=== PATIENT | female | born 1940 | race Caucasian/White ===

== ENCOUNTER 2017-04-12 12:09 | Outpatient (CLI) | payer MEDICARE, BC ==
[~2017-04-12 12:09] MED LIST: ASPI81TA52 PO; ATOR20TA PO; BUPR150T8 PO; CALC-1051 PO; CARV25TA56 PO; COL100C PO; CYCL-394 PO; FAMO-129 PO; FERR325T28 PO; FURO-150 PO; HYDR-565 PO; IMMU2VIA; INSU100I25 SQ; ISOS30TA9 PO; LISI40TA4 PO; METHYLCELLULOSE PO; POLY17PO10 PO; PREG75CA30 PO; PREN1TAB79 PO; SITA50TA PO; VIT D3 PO; VITA-67 PO; VITA400T10 PO; VITC500T PO
[2017-04-12 13:07] LABS: ALBUMIN 2.8 G/DL (3.4-5.0); ANION GAP 3 (8-16); BLOOD UREA NITROGEN 45 MG/DL (7-18); BUN/CREATININE RATIO 22.2 (6.6-38.0); CALCIUM 9.2 MG/DL (8.5-10.1); CHLORIDE 107 MMOL/L (99-107); CREATININE 2.03 MG/DL (0.40-0.90); GLUCOSE 179 MG/DL (70-104); SODIUM 140 MMOL/L (135-145); TOTAL CARBON DIOXIDE 29.8 MMOL/L (24-32); eGFR 24 ML/MIN
== END 2017-04-12 23:59 | disposition home or self-care (01) ==
LOC: LAB 12:09
PROVIDERS: ATTEND Internal Medicine Cardiovascular Disease
DX: R06.02 Shortness of breath (principal); I10 Essential (primary) hypertension; E11.9 Type 2 diabetes mellitus without complications
CPT/HCPCS: 36415; 80048; 83880

== ENCOUNTER 2017-05-21 21:01 | Inpatient (IN) | payer MEDICARE, BC ==
[~2017-05-21] VITALS: Ht 157.5 cm; Wt 110.0 kg
[2017-05-21 21:36] LABS: BASOPHILS % (AUTO) 0.6 % (0-1); EOSINOPHILS # (AUTO) 0.3 X10'3 (0-0.9); EOSINOPHILS % (AUTO) 3.8 % (0-6); HEMATOCRIT 31.8 % (35.0-45.0); HEMOGLOBIN 10.4 g/dl (12.0-16.0); LYMPHOCYTES # (AUTO) 1.7 X10'3 (1.1-4.8); LYMPHOCYTES % (AUTO) 22.7 % (21-51); MEAN CORPUSCULAR HEMOGLOBIN 30.4 PG (27.0-31.0); MEAN CORPUSCULAR HGB CONC 32.9 % (33.0-36.5); MEAN CORPUSCULAR VOLUME 92.4 FL (78-98); MEAN PLATELET VOLUME 10.6 FL (7.4-10.4); MONOCYTES # (AUTO) 0.9 X10'3 (0-0.9); MONOCYTES % (AUTO) 12.6 % (2-12); NEUTROPHILS # (AUTO) 4.5 X10'3 (1.8-7.7); NEUTROPHILS % (AUTO) 60.3 % (42-75); PLATELET COUNT 108 X10'3 (140-440); RED BLOOD COUNT 3.44 X10'6 (4.20-5.60); RED CELL DISTRIBUTION WIDTH 21.4 % (11.5-14.5); WHITE BLOOD COUNT 7.5 X10'3 (4.5-11.0)
[2017-05-21] MEDS ORDERED: furosemide 10 MG/1 ML 10ml inj IV ONE (21:45)
[2017-05-21] MEDS ORDERED: enalaprilat dihydrate 2.5mg/2ml vial IV ONE (21:50)
[2017-05-21] MEDS ORDERED: nitroGLYCERIN-Tridil 50MG/D5W 250 ML IV ONE (21:50)
[2017-05-21 21:53] LABS: D-DIMER 2.38 MG/L FEU (0-0.50); INR 1.4 INR; PARTIAL THROMBOPLASTIN TIME 28 SECONDS (22-32); PROTHROMBIN TIME 14.2 SECONDS (9.0-12.0)
[2017-05-21 21:55] LABS: LARGE PLATELETS MODERATE; PLATELET ESTIMATE DECREASED
[2017-05-21 22:04] LABS: ALANINE AMINOTRANSFERASE 58 U/L (12-78); ALBUMIN 3.2 G/DL (3.4-5.0); ALKALINE PHOSPHATASE 135 IU/L (46-116); ANION GAP 5 (8-16); ASPARTATE AMINO TRANSFERASE 62 U/L (10-37); BLOOD UREA NITROGEN 54 MG/DL (7-18); BUN/CREATININE RATIO 33.8 (6.6-38.0); CALCIUM 8.3 MG/DL (8.5-10.1); CHLORIDE 98 MMOL/L (99-107); GLUCOSE 197 MG/DL (70-104); POTASSIUM 4.8 MMOL/L (3.5-5.1); SODIUM 133 MMOL/L (135-145); TOTAL CARBON DIOXIDE 29.6 MMOL/L (24-32); TOTAL PROTEIN 6.3 G/DL (6.4-8.2); eGFR 31 ML/MIN
[2017-05-21] MEDS ORDERED: heparin 10,000 units/1 ML INJ IV ONE ×2 (22:50→23:20)
[2017-05-22] VITALS (12 sets, daily range): BP systolic 101–156; BP diastolic 56–90
[2017-05-22] MEDS: normal saline 1000ml 1,000 ML IV SCH (01:49)
[2017-05-22] MEDS ORDERED: furosemide 10 MG/1 ML 10ml inj IV ONE (01:50)
[2017-05-22] MEDS ORDERED: potassium Cl 20 mEq SR tablet PO PRN ×2 (01:50)
[2017-05-22] MEDS ORDERED: potassium Cl 40MEQ/NS 500ml 500 ML IV PRN ×2 (01:50)
[2017-05-22] MEDS ORDERED: magnesium Cl slow-release 64mg tablet PO PRN (01:50)
[2017-05-22] MEDS ORDERED: magnesium 4gm in 100ml NS 100 ML IV PRN (01:50)
[2017-05-22] MEDS ORDERED: magnesium hydroxide 30ml (MOM) UD suspension PO PRN (01:50)
[2017-05-22] MEDS ORDERED: magnesium 2GM in 50ml NS 50 ML IV PRN (01:50)
[2017-05-22] MEDS ORDERED: albuterol 2.5 MG/3 ML nebule NEB PRN (01:50)
[2017-05-22] MEDS: morphine 2 MG/ML inj. syringe IV PRN ×3 (03:43→13:08)
[2017-05-22] MEDS ORDERED: Insulin Detemir pen SQ SCH ×2 (07:30→21:00)
[2017-05-22 07:57] LABS: BASOPHILS # (AUTO) 0.1 X10'3 (0-0.2); EOSINOPHILS # (AUTO) 0.2 X10'3 (0-0.9); EOSINOPHILS % (AUTO) 2.4 % (0-6); HEMATOCRIT 28.1 % (35.0-45.0); HEMOGLOBIN 9.3 g/dl (12.0-16.0); LYMPHOCYTES # (AUTO) 2.3 X10'3 (1.1-4.8); LYMPHOCYTES % (AUTO) 27.8 % (21-51); MEAN CORPUSCULAR HEMOGLOBIN 30.5 PG (27.0-31.0); MEAN CORPUSCULAR VOLUME 92.4 FL (78-98); MEAN PLATELET VOLUME 9.8 FL (7.4-10.4); MONOCYTES # (AUTO) 0.9 X10'3 (0-0.9); MONOCYTES % (AUTO) 10.8 % (2-12); NEUTROPHILS # (AUTO) 4.8 X10'3 (1.8-7.7); PLATELET COUNT 89 X10'3 (140-440); RED BLOOD COUNT 3.04 X10'6 (4.20-5.60); RED CELL DISTRIBUTION WIDTH 20.7 % (11.5-14.5); WHITE BLOOD COUNT 8.3 X10'3 (4.5-11.0)
[2017-05-22] MEDS ORDERED: furosemide 20MG tablet PO SCH ×2 (08:00→20:00)
[2017-05-22] MEDS: K and/or MAG REPLACEMENT MC SCH (08:00)
[2017-05-22] MEDS ORDERED: [UNRECOGNIZED DRUG - OTHER] PO SCH (08:00)
[2017-05-22] MEDS ORDERED: PRENATAL VITS W CA FE FA PO SCH (08:00)
[2017-05-22] MEDS ORDERED: pregabalin 75mg capsule PO SCH (08:00)
[2017-05-22 08:08] LABS: ALANINE AMINOTRANSFERASE 121 U/L (12-78); ALBUMIN 2.9 G/DL (3.4-5.0); ALBUMIN/GLOBULIN RATIO 1.1 (1.1-1.5); ALKALINE PHOSPHATASE 104 IU/L (46-116); ANION GAP 8 (8-16); ASPARTATE AMINO TRANSFERASE 197 U/L (10-37); BILIRUBIN,TOTAL 1.2 MG/DL (0.1-1.0); BLOOD UREA NITROGEN 55 MG/DL (7-18); BUN/CREATININE RATIO 36.7 (6.6-38.0); CALCIUM 8.4 MG/DL (8.5-10.1); CHLORIDE 101 MMOL/L (99-107); GLUCOSE 189 MG/DL (70-104); POTASSIUM 4.8 MMOL/L (3.5-5.1); SODIUM 136 MMOL/L (135-145); TOTAL CARBON DIOXIDE 27.3 MMOL/L (24-32); TOTAL PROTEIN 5.6 G/DL (6.4-8.2); eGFR 34 ML/MIN
[2017-05-22] MEDS: ondansetron/PF 4mg/2ml inj IV PRN (10:01)
[2017-05-22] MEDS: ferrous sulfate 325mg tablet PO SCH (10:03)
[2017-05-22] MEDS: vitamin B comp w/Vit. C tab 1 TAB TABLET PO SCH (10:04)
[2017-05-22] MEDS: carVEDilol 12.5mg tablet PO SCH ×2 (10:04→19:53)
[2017-05-22] MEDS: aspirin 81mg tablet.DR PO SCH (10:04)
[2017-05-22] MEDS: isosorbide dinitrate 30mg tablet PO SCH (10:05)
[2017-05-22] MEDS: buPROPion SR 150mg tablet PO SCH (10:05)
[2017-05-22] MEDS: calcium carbonate/vitamin D3 tablet PO SCH (10:05)
[2017-05-22] MEDS: lisinopril 20mg tablet PO SCH (10:06)
[2017-05-22] MEDS: docusate sod 100mg capsule PO SCH ×2 (10:15→19:53)
[2017-05-22 10:31] LABS: PARTIAL THROMBOPLASTIN TIME > 153 SECONDS (22-32)
[2017-05-22] MEDS ORDERED: dextrose ORAL solution 15 GM/59 ML bottle PO PRN ×2 (10:40)
[2017-05-22] MEDS ORDERED: dextrose 50%-water 50ml dispensing syringe IV PRN ×2 (10:40)
[2017-05-22] MEDS ORDERED: MESSAGE TO PHARMACY PO ONE (10:40)
[2017-05-22] MEDS ORDERED: glucagon, human recombinant 1mg kit SUBCUT PRN (10:40)
[2017-05-22] MEDS: furosemide 40mg/4ml inj IV SCH (12:50)
[2017-05-22] MEDS: metolazone 2.5mg tablet PO SCH ×2 (12:52→19:53)
[2017-05-22] MEDS: insulin Lispro (HumaLOG) vial - multi-dose SQ SCH ×2 (13:17→19:22)
[2017-05-22] MEDS: heparin, porcine 5000 units/ml vial SQ SCH (19:50)
[2017-05-22] MEDS ORDERED: temazepam 15mg capsule PO PRN (21:00)
[2017-05-22] MEDS: insulin glargine (Lantus) pen - multi-dose SQ SCH (21:35)
[2017-05-22] MEDS: pregabalin 25mg capsule PO SCH (21:37)
[2017-05-22] MEDS: pregabalin 75mg capsule PO SCH (21:37)
[2017-05-22] MEDS: vitamin E 400 unit capsule PO SCH (21:37)
[2017-05-22] MEDS: atorvastatin 20mg tablet PO SCH (21:38)
[2017-05-22] MEDS: nystatin 15 GM powder TP SCH (21:40)
[2017-05-23] VITALS (11 sets, daily range): BP systolic 98–126; BP diastolic 40–70
[2017-05-23 07:37] LABS: BASOPHILS % (AUTO) 0.6 % (0-1); EOSINOPHILS # (AUTO) 0.3 X10'3 (0-0.9); HEMATOCRIT 25.7 % (35.0-45.0); HEMOGLOBIN 8.4 g/dl (12.0-16.0); LYMPHOCYTES # (AUTO) 1.3 X10'3 (1.1-4.8); LYMPHOCYTES % (AUTO) 19.1 % (21-51); MEAN CORPUSCULAR HEMOGLOBIN 30.6 PG (27.0-31.0); MEAN CORPUSCULAR HGB CONC 32.9 % (33.0-36.5); MEAN CORPUSCULAR VOLUME 93.1 FL (78-98); MONOCYTES # (AUTO) 0.8 X10'3 (0-0.9); MONOCYTES % (AUTO) 12.3 % (2-12); NEUTROPHILS # (AUTO) 4.3 X10'3 (1.8-7.7); PLATELET COUNT 95 X10'3 (140-440); RED BLOOD COUNT 2.75 X10'6 (4.20-5.60); RED CELL DISTRIBUTION WIDTH 21.1 % (11.5-14.5); WHITE BLOOD COUNT 6.8 X10'3 (4.5-11.0)
[2017-05-23] MEDS: K and/or MAG REPLACEMENT MC SCH (08:00)
[2017-05-23] MEDS: aspirin 81mg tablet.DR PO SCH (08:00)
[2017-05-23] MEDS: heparin, porcine 5000 units/ml vial SQ SCH ×2 (08:00→18:29)
[2017-05-23 08:05] LABS: ALANINE AMINOTRANSFERASE 121 U/L (12-78); ALBUMIN 2.6 G/DL (3.4-5.0); ALBUMIN/GLOBULIN RATIO 1.1 (1.1-1.5); ALKALINE PHOSPHATASE 86 IU/L (46-116); ANION GAP 6 (8-16); ASPARTATE AMINO TRANSFERASE 105 U/L (10-37); BILIRUBIN,TOTAL 0.7 MG/DL (0.1-1.0); BLOOD UREA NITROGEN 58 MG/DL (7-18); BUN/CREATININE RATIO 34.1 (6.6-38.0); CALCIUM 8.1 MG/DL (8.5-10.1); CHLORIDE 101 MMOL/L (99-107); CHOL/HDL RATIO 3.6 (0.00-4.99); CHOLESTEROL 76 MG/DL (0-200); GLUCOSE 206 MG/DL (70-104); HDL CHOLESTEROL 21 MG/DL (35-60); LDL CHOLESTEROL 41 MG/DL (50-100); POTASSIUM 4.4 MMOL/L (3.5-5.1); SODIUM 136 MMOL/L (135-145); TOTAL CARBON DIOXIDE 29.5 MMOL/L (24-32); TRIGLYCERIDES 88 MG/DL (20-135); eGFR 29 ML/MIN
[2017-05-23] MEDS: buPROPion SR 150mg tablet PO SCH (09:27)
[2017-05-23] MEDS: isosorbide dinitrate 30mg tablet PO SCH (09:28)
[2017-05-23] MEDS: furosemide 40mg/4ml inj IV SCH (09:28)
[2017-05-23] MEDS: docusate sod 100mg capsule PO SCH ×2 (09:29→19:04)
[2017-05-23] MEDS: carVEDilol 12.5mg tablet PO SCH ×2 (09:30→19:05)
[2017-05-23] MEDS: lisinopril 20mg tablet PO SCH (09:30)
[2017-05-23] MEDS: vitamin B comp w/Vit. C tab 1 TAB TABLET PO SCH (09:30)
[2017-05-23] MEDS: calcium carbonate/vitamin D3 tablet PO SCH (09:31)
[2017-05-23] MEDS: metolazone 2.5mg tablet PO SCH ×2 (09:31→19:04)
[2017-05-23] MEDS: ferrous sulfate 325mg tablet PO SCH (09:31)
[2017-05-23] MEDS: nystatin 15 GM powder TP SCH ×3 (09:32→21:01)
[2017-05-23] MEDS: insulin Lispro (HumaLOG) vial - multi-dose SQ SCH ×3 (09:40→19:04)
[2017-05-23] MEDS: atorvastatin 20mg tablet PO SCH (20:54)
[2017-05-23] MEDS: pregabalin 25mg capsule PO SCH (20:55)
[2017-05-23] MEDS: vitamin E 400 unit capsule PO SCH (20:55)
[2017-05-23] MEDS: pregabalin 75mg capsule PO SCH (20:55)
[2017-05-23] MEDS: polyethylene glycol 3350 17gm powd pack PO SCH (20:55)
[2017-05-23] MEDS: morphine 2 MG/ML inj. syringe IV PRN (20:56)
[2017-05-23] MEDS: psyllium seed 3.4 gm packet PO SCH (20:56)
[2017-05-23] MEDS: insulin glargine (Lantus) pen - multi-dose SQ SCH (21:00)
[2017-05-24] VITALS (25 sets, daily range): BP systolic 88–154; BP diastolic 39–102
[2017-05-24] MEDS: normal saline 1000ml 1,000 ML IV SCH (01:49)
[2017-05-24] MEDS: morphine 2 MG/ML inj. syringe IV PRN (03:12)
[2017-05-24 05:23] LABS: BASOPHILS % (AUTO) 0.6 % (0-1); EOSINOPHILS # (AUTO) 0.3 X10'3 (0-0.9); EOSINOPHILS % (AUTO) 4.4 % (0-6); HEMATOCRIT 24.7 % (35.0-45.0); HEMOGLOBIN 8.3 g/dl (12.0-16.0); LYMPHOCYTES # (AUTO) 1.3 X10'3 (1.1-4.8); LYMPHOCYTES % (AUTO) 20.7 % (21-51); MEAN CORPUSCULAR HEMOGLOBIN 31.1 PG (27.0-31.0); MEAN CORPUSCULAR HGB CONC 33.7 % (33.0-36.5); MEAN CORPUSCULAR VOLUME 92.3 FL (78-98); MEAN PLATELET VOLUME 10.6 FL (7.4-10.4); MONOCYTES # (AUTO) 0.9 X10'3 (0-0.9); MONOCYTES % (AUTO) 14.4 % (2-12); NEUTROPHILS # (AUTO) 3.7 X10'3 (1.8-7.7); NEUTROPHILS % (AUTO) 59.9 % (42-75); PLATELET COUNT 103 X10'3 (140-440); RED BLOOD COUNT 2.67 X10'6 (4.20-5.60); RED CELL DISTRIBUTION WIDTH 21.1 % (11.5-14.5); WHITE BLOOD COUNT 6.3 X10'3 (4.5-11.0)
[2017-05-24 05:37] LABS: ALANINE AMINOTRANSFERASE 135 U/L (12-78); ALBUMIN 2.6 G/DL (3.4-5.0); ALKALINE PHOSPHATASE 98 IU/L (46-116); ANION GAP 5 (8-16); ASPARTATE AMINO TRANSFERASE 113 U/L (10-37); BILIRUBIN,TOTAL 0.7 MG/DL (0.1-1.0); BLOOD UREA NITROGEN 60 MG/DL (7-18); BUN/CREATININE RATIO 37.5 (6.6-38.0); CALCIUM 8.3 MG/DL (8.5-10.1); CHLORIDE 103 MMOL/L (99-107); GLUCOSE 156 MG/DL (70-104); MAGNESIUM 1.9 MG/DL (1.5-2.4); POTASSIUM 4.3 MMOL/L (3.5-5.1); SODIUM 138 MMOL/L (135-145); TOTAL CARBON DIOXIDE 30.1 MMOL/L (24-32); TOTAL PROTEIN 5.1 G/DL (6.4-8.2); eGFR 31 ML/MIN
[2017-05-24] MEDS: heparin, porcine 5000 units/ml vial SQ SCH ×2 (08:00→20:00)
[2017-05-24] MEDS: nystatin 15 GM powder TP SCH ×3 (08:00→22:37)
[2017-05-24] MEDS: K and/or MAG REPLACEMENT MC SCH (08:00)
[2017-05-24] MEDS: docusate sod 100mg capsule PO SCH ×2 (08:16→20:22)
[2017-05-24] MEDS: lisinopril 20mg tablet PO SCH (08:16)
[2017-05-24] MEDS: ferrous sulfate 325mg tablet PO SCH (08:17)
[2017-05-24] MEDS: isosorbide dinitrate 30mg tablet PO SCH (08:17)
[2017-05-24] MEDS: buPROPion SR 150mg tablet PO SCH (08:17)
[2017-05-24] MEDS: calcium carbonate/vitamin D3 tablet PO SCH (08:17)
[2017-05-24] MEDS: vitamin B comp w/Vit. C tab 1 TAB TABLET PO SCH (08:18)
[2017-05-24] MEDS: carVEDilol 12.5mg tablet PO SCH ×2 (08:18→20:23)
[2017-05-24] MEDS: aspirin 81mg tablet.DR PO SCH (08:18)
[2017-05-24] MEDS: metolazone 2.5mg tablet PO SCH ×2 (08:19→20:23)
[2017-05-24] MEDS: furosemide 40mg/4ml inj IV SCH (08:29)
[2017-05-24] MEDS: insulin Lispro (HumaLOG) vial - multi-dose SQ SCH ×3 (08:38→20:29)
[2017-05-24] MEDS: DOBUTamine-DoBUTrex 500mg/D5W 250 ML IV SCH (11:28)
[2017-05-24] MEDS: acetaminophen 325mg tablet PO PRN (17:59)
[2017-05-24] MEDS: pregabalin 25mg capsule PO SCH (20:25)
[2017-05-24] MEDS: pregabalin 75mg capsule PO SCH (20:25)
[2017-05-24] MEDS: polyethylene glycol 3350 17gm powd pack PO SCH (20:26)
[2017-05-24] MEDS: psyllium seed 3.4 gm packet PO SCH (20:26)
[2017-05-24] MEDS: atorvastatin 20mg tablet PO SCH (20:26)
[2017-05-24] MEDS: vitamin E 400 unit capsule PO SCH (20:35)
[2017-05-24] MEDS: insulin glargine (Lantus) pen - multi-dose SQ SCH (22:37)
[2017-05-25] VITALS (12 sets, daily range): BP systolic 76–145; BP diastolic 41–69
[2017-05-25] MEDS: HYDROcodone/acetaminophen 5mg/325mg tablet PO PRN (03:24)
[2017-05-25 05:18] LABS: BASOPHILS % (AUTO) 0.6 % (0-1); EOSINOPHILS # (AUTO) 0.3 X10'3 (0-0.9); HEMATOCRIT 26.2 % (35.0-45.0); HEMOGLOBIN 8.9 g/dl (12.0-16.0); LYMPHOCYTES # (AUTO) 1.3 X10'3 (1.1-4.8); LYMPHOCYTES % (AUTO) 19.9 % (21-51); MEAN CORPUSCULAR HEMOGLOBIN 31.1 PG (27.0-31.0); MEAN CORPUSCULAR HGB CONC 33.9 % (33.0-36.5); MEAN CORPUSCULAR VOLUME 91.6 FL (78-98); MEAN PLATELET VOLUME 10.1 FL (7.4-10.4); MONOCYTES # (AUTO) 0.9 X10'3 (0-0.9); MONOCYTES % (AUTO) 14.3 % (2-12); NEUTROPHILS # (AUTO) 3.9 X10'3 (1.8-7.7); NEUTROPHILS % (AUTO) 61.2 % (42-75); PLATELET COUNT 91 X10'3 (140-440); RED BLOOD COUNT 2.86 X10'6 (4.20-5.60); RED CELL DISTRIBUTION WIDTH 21.7 % (11.5-14.5); WHITE BLOOD COUNT 6.4 X10'3 (4.5-11.0)
[2017-05-25 05:36] LABS: ANISOCYTOSIS 3+; PLATELET ESTIMATE DECREASED; SCHISTOCYTES 1+
[2017-05-25 05:53] LABS: ALANINE AMINOTRANSFERASE 117 U/L (12-78); ALBUMIN 2.6 G/DL (3.4-5.0); ALKALINE PHOSPHATASE 96 IU/L (46-116); ANION GAP 7 (8-16); ASPARTATE AMINO TRANSFERASE 81 U/L (10-37); BILIRUBIN,TOTAL 0.8 MG/DL (0.1-1.0); BLOOD UREA NITROGEN 56 MG/DL (7-18); BUN/CREATININE RATIO 37.3 (6.6-38.0); CALCIUM 8.6 MG/DL (8.5-10.1); CHLORIDE 103 MMOL/L (99-107); GLUCOSE 146 MG/DL (70-104); MAGNESIUM 2.1 MG/DL (1.5-2.4); POTASSIUM 4.3 MMOL/L (3.5-5.1); SODIUM 142 MMOL/L (135-145); TOTAL PROTEIN 5.2 G/DL (6.4-8.2); eGFR 34 ML/MIN
[2017-05-25] MEDS: K and/or MAG REPLACEMENT MC SCH (08:00)
[2017-05-25] MEDS: heparin, porcine 5000 units/ml vial SQ SCH ×2 (08:00→19:38)
[2017-05-25] MEDS: isosorbide dinitrate 30mg tablet PO SCH (08:02)
[2017-05-25] MEDS: vitamin B comp w/Vit. C tab 1 TAB TABLET PO SCH (08:03)
[2017-05-25] MEDS: aspirin 81mg tablet.DR PO SCH (08:03)
[2017-05-25] MEDS: buPROPion SR 150mg tablet PO SCH (08:03)
[2017-05-25] MEDS: furosemide 40mg/4ml inj IV SCH (08:03)
[2017-05-25] MEDS: docusate sod 100mg capsule PO SCH ×2 (08:03→19:37)
[2017-05-25] MEDS: metolazone 2.5mg tablet PO SCH ×2 (08:03→19:38)
[2017-05-25] MEDS: carVEDilol 12.5mg tablet PO SCH ×2 (08:03→19:37)
[2017-05-25] MEDS: calcium carbonate/vitamin D3 tablet PO SCH (08:03)
[2017-05-25] MEDS: ferrous sulfate 325mg tablet PO SCH (08:03)
[2017-05-25] MEDS: lisinopril 20mg tablet PO SCH (08:06)
[2017-05-25] MEDS: nystatin 15 GM powder TP SCH ×3 (08:06→21:28)
[2017-05-25] MEDS: insulin Lispro (HumaLOG) vial - multi-dose SQ SCH ×3 (08:28→19:28)
[2017-05-25] MEDS: DOBUTamine-DoBUTrex 500mg/D5W 250 ML IV SCH ×2 (08:57→11:06)
[2017-05-25] MEDS: acetaminophen 325mg tablet PO PRN (14:30)
[2017-05-25] MEDS ORDERED: furosemide 10 MG/1 ML 10ml inj IV ONE (18:50)
[2017-05-25] MEDS: psyllium seed 3.4 gm packet PO SCH (21:00)
[2017-05-25] MEDS: vitamin E 400 unit capsule PO SCH (21:23)
[2017-05-25] MEDS: atorvastatin 20mg tablet PO SCH (21:24)
[2017-05-25] MEDS: polyethylene glycol 3350 17gm powd pack PO SCH (21:24)
[2017-05-25] MEDS: pregabalin 25mg capsule PO SCH (21:24)
[2017-05-25] MEDS: pregabalin 75mg capsule PO SCH (21:27)
[2017-05-25] MEDS: morphine 2 MG/ML inj. syringe IV PRN (21:36)
[2017-05-25] MEDS: insulin glargine (Lantus) pen - multi-dose SQ SCH (21:47)
[2017-05-26] VITALS (13 sets, daily range): BP systolic 95–156; BP diastolic 45–93
[2017-05-26] MEDS: HYDROcodone/acetaminophen 5mg/325mg tablet PO PRN (00:29)
[2017-05-26] MEDS: normal saline 1000ml 1,000 ML IV SCH (01:49)
[2017-05-26] MEDS: morphine 2 MG/ML inj. syringe IV PRN (02:48)
[2017-05-26] MEDS: DOBUTamine-DoBUTrex 500mg/D5W 250 ML IV SCH ×2 (02:49→17:33)
[2017-05-26] MEDS: ondansetron/PF 4mg/2ml inj IV PRN (05:56)
[2017-05-26 06:17] LABS: BASOPHILS % (AUTO) 0.6 % (0-1); EOSINOPHILS # (AUTO) 0.3 X10'3 (0-0.9); EOSINOPHILS % (AUTO) 4.6 % (0-6); HEMATOCRIT 26.6 % (35.0-45.0); LYMPHOCYTES # (AUTO) 1.2 X10'3 (1.1-4.8); LYMPHOCYTES % (AUTO) 19.4 % (21-51); MEAN CORPUSCULAR HEMOGLOBIN 31.2 PG (27.0-31.0); MEAN CORPUSCULAR HGB CONC 33.9 % (33.0-36.5); MEAN CORPUSCULAR VOLUME 92.1 FL (78-98); MEAN PLATELET VOLUME 9.8 FL (7.4-10.4); MONOCYTES # (AUTO) 0.9 X10'3 (0-0.9); MONOCYTES % (AUTO) 13.6 % (2-12); NEUTROPHILS # (AUTO) 3.9 X10'3 (1.8-7.7); NEUTROPHILS % (AUTO) 61.8 % (42-75); PLATELET COUNT 94 X10'3 (140-440); RED BLOOD COUNT 2.89 X10'6 (4.20-5.60); RED CELL DISTRIBUTION WIDTH 21.9 % (11.5-14.5); WHITE BLOOD COUNT 6.3 X10'3 (4.5-11.0)
[2017-05-26 06:55] LABS: ALANINE AMINOTRANSFERASE 105 U/L (12-78); ALBUMIN 2.6 G/DL (3.4-5.0); ALKALINE PHOSPHATASE 86 IU/L (46-116); ANION GAP 6 (8-16); ASPARTATE AMINO TRANSFERASE 67 U/L (10-37); BLOOD UREA NITROGEN 52 MG/DL (7-18); BUN/CREATININE RATIO 36.6 (6.6-38.0); CALCIUM 8.6 MG/DL (8.5-10.1); CHLORIDE 101 MMOL/L (99-107); CREATININE 1.42 MG/DL (0.40-0.90); GLUCOSE 76 MG/DL (70-104); SODIUM 142 MMOL/L (135-145); TOTAL CARBON DIOXIDE 34.7 MMOL/L (24-32); TOTAL PROTEIN 5.2 G/DL (6.4-8.2); eGFR 36 ML/MIN
[2017-05-26 07:12] LABS: ANISOCYTOSIS 3+; PLATELET ESTIMATE DECREASED
[2017-05-26 07:14] LABS: SCHISTOCYTES FEW
[2017-05-26 07:15] LABS: POIKILOCYTOSIS 1+
[2017-05-26] MEDS: vitamin B comp w/Vit. C tab 1 TAB TABLET PO SCH (07:32)
[2017-05-26] MEDS: buPROPion SR 150mg tablet PO SCH (07:32)
[2017-05-26] MEDS: metolazone 2.5mg tablet PO SCH ×2 (07:32→20:00)
[2017-05-26] MEDS: isosorbide dinitrate 30mg tablet PO SCH (07:32)
[2017-05-26] MEDS: calcium carbonate/vitamin D3 tablet PO SCH (07:33)
[2017-05-26] MEDS: docusate sod 100mg capsule PO SCH ×2 (07:33→20:00)
[2017-05-26] MEDS: aspirin 81mg tablet.DR PO SCH (07:33)
[2017-05-26] MEDS: furosemide 40mg/4ml inj IV SCH ×2 (07:33→12:42)
[2017-05-26] MEDS: carVEDilol 12.5mg tablet PO SCH ×2 (07:33→20:00)
[2017-05-26] MEDS: ferrous sulfate 325mg tablet PO SCH (07:33)
[2017-05-26] MEDS: lisinopril 20mg tablet PO SCH (07:33)
[2017-05-26] MEDS: nystatin 15 GM powder TP SCH ×3 (07:34→21:58)
[2017-05-26] MEDS: heparin, porcine 5000 units/ml vial SQ SCH ×2 (07:34→20:00)
[2017-05-26] MEDS: K and/or MAG REPLACEMENT MC SCH (07:34)
[2017-05-26] MEDS: insulin Lispro (HumaLOG) vial - multi-dose SQ SCH ×4 (08:42→22:58)
[2017-05-26] MEDS: acetaminophen 325mg tablet PO PRN (14:38)
[2017-05-26] MEDS: psyllium seed 3.4 gm packet PO SCH (21:00)
[2017-05-26] MEDS: polyethylene glycol 3350 17gm powd pack PO SCH (21:58)
[2017-05-26] MEDS: pregabalin 25mg capsule PO SCH (21:58)
[2017-05-26] MEDS: pregabalin 75mg capsule PO SCH (21:58)
[2017-05-26] MEDS: atorvastatin 20mg tablet PO SCH (21:58)
[2017-05-26] MEDS: vitamin E 400 unit capsule PO SCH (21:58)
[2017-05-26] MEDS: insulin glargine (Lantus) pen - multi-dose SQ SCH (22:58)
[2017-05-27] VITALS (12 sets, daily range): BP systolic 89–130; BP diastolic 27–99
[2017-05-27 05:30] LABS: CLARITY,URINE TURBID (Clear); GLUCOSE, URINE NEGATIVE (Neg); KETONES,URINE NEGATIVE (Neg); LEUKOCYTE ESTERASE ,URINE LARGE (Neg); NITRITES, URINE NEGATIVE (Neg); OCCULT BLOOD,URINE LARGE (Neg); PROTEIN,URINE 100 mg/dl (Neg); UROBILINOGEN,URINE 0.2 E.U/dL (0.2-1.0)
[2017-05-27 05:39] LABS: COLOR,URINE DARK YELLOW (Yellow); UA COLLECTION TYPE FOLEY CATH
[2017-05-27 05:41] LABS: BACTERIA,URINE 4+ /HPF (Neg); MUCUS STRANDS NONE SEEN /LPF (Neg); RBC,URINE TNTC /HPF (0-2); SQUAMOUS EPITHELIAL CELL,UR NONE SEEN /LPF (FEW); WBC CLUMPS,URINE MANY /HPF (NEGATIVE); WBC,URINE TNTC /HPF (0-4)
[2017-05-27 06:30] LABS: BASOPHILS % (AUTO) 0.7 % (0-1); EOSINOPHILS # (AUTO) 0.3 X10'3 (0-0.9); EOSINOPHILS % (AUTO) 4.7 % (0-6); HEMATOCRIT 26.5 % (35.0-45.0); HEMOGLOBIN 8.7 g/dl (12.0-16.0); LYMPHOCYTES % (AUTO) 15.5 % (21-51); MEAN CORPUSCULAR HEMOGLOBIN 30.9 PG (27.0-31.0); MEAN CORPUSCULAR HGB CONC 32.8 % (33.0-36.5); MEAN PLATELET VOLUME 10.3 FL (7.4-10.4); MONOCYTES % (AUTO) 15.6 % (2-12); NEUTROPHILS # (AUTO) 4.3 X10'3 (1.8-7.7); NEUTROPHILS % (AUTO) 63.5 % (42-75); PLATELET COUNT 102 X10'3 (140-440); RED BLOOD COUNT 2.82 X10'6 (4.20-5.60); RED CELL DISTRIBUTION WIDTH 21.9 % (11.5-14.5); WHITE BLOOD COUNT 6.7 X10'3 (4.5-11.0)
[2017-05-27 06:43] LABS: ALANINE AMINOTRANSFERASE 85 U/L (12-78); ALBUMIN 2.5 G/DL (3.4-5.0); ALBUMIN/GLOBULIN RATIO 0.9 (1.1-1.5); ALKALINE PHOSPHATASE 84 IU/L (46-116); ANION GAP 3 (8-16); ASPARTATE AMINO TRANSFERASE 51 U/L (10-37); BILIRUBIN,TOTAL 0.8 MG/DL (0.1-1.0); BLOOD UREA NITROGEN 50 MG/DL (7-18); BUN/CREATININE RATIO 30.7 (6.6-38.0); CALCIUM 8.3 MG/DL (8.5-10.1); CHLORIDE 103 MMOL/L (99-107); CREATININE 1.63 MG/DL (0.40-0.90); GLUCOSE 58 MG/DL (70-104); MAGNESIUM 2.1 MG/DL (1.5-2.4); POTASSIUM 3.9 MMOL/L (3.5-5.1); SODIUM 143 MMOL/L (135-145); TOTAL CARBON DIOXIDE 36.7 MMOL/L (24-32); TOTAL PROTEIN 5.2 G/DL (6.4-8.2); eGFR 31 ML/MIN
[2017-05-27] MEDS: isosorbide dinitrate 30mg tablet PO SCH (08:00)
[2017-05-27] MEDS: K and/or MAG REPLACEMENT MC SCH (08:00)
[2017-05-27] MEDS: furosemide 40mg/4ml inj IV SCH ×2 (08:00→20:38)
[2017-05-27] MEDS: carVEDilol 12.5mg tablet PO SCH ×2 (08:00→21:38)
[2017-05-27] MEDS: vitamin B comp w/Vit. C tab 1 TAB TABLET PO SCH (08:28)
[2017-05-27] MEDS: calcium carbonate/vitamin D3 tablet PO SCH (08:28)
[2017-05-27] MEDS: heparin, porcine 5000 units/ml vial SQ SCH ×2 (08:28→20:39)
[2017-05-27] MEDS: buPROPion SR 150mg tablet PO SCH (08:28)
[2017-05-27] MEDS: ferrous sulfate 325mg tablet PO SCH (08:29)
[2017-05-27] MEDS: aspirin 81mg tablet.DR PO SCH (08:29)
[2017-05-27] MEDS: docusate sod 100mg capsule PO SCH ×2 (08:29→20:00)
[2017-05-27] MEDS: metolazone 2.5mg tablet PO SCH ×2 (08:33→21:59)
[2017-05-27] MEDS: insulin Lispro (HumaLOG) vial - multi-dose SQ SCH (09:01)
[2017-05-27] MEDS: nystatin 15 GM powder TP SCH ×3 (09:17→21:59)
[2017-05-27] MEDS: DOBUTamine-DoBUTrex 500mg/D5W 250 ML IV SCH (09:26)
[2017-05-27] MEDS ORDERED: LORazepam 2 mg/ml vial IV PRN ×2 (15:55→17:00)
[2017-05-27] MEDS ORDERED: LORazepam 1 MG tablet PO PRN ×2 (16:00→17:00)
[2017-05-27] MEDS: milrinone (Primacor) 20mg/D5W 100 ML IV SCH ×3 (19:51→20:35)
[2017-05-27] MEDS: piperacillin/tazo 3.375gm/50ml 50 ML IV SCH (20:38)
[2017-05-27] MEDS: insulin glargine (Lantus) pen - multi-dose SQ SCH (21:00)
[2017-05-27] MEDS: polyethylene glycol 3350 17gm powd pack PO SCH (21:00)
[2017-05-27] MEDS: psyllium seed 3.4 gm packet PO SCH (21:00)
[2017-05-27] MEDS: morphine 5 MG/ML injection IV PRN ×2 (21:07→23:53)
[2017-05-27] MEDS: pregabalin 75mg capsule PO SCH (21:37)
[2017-05-27] MEDS: pregabalin 25mg capsule PO SCH (21:37)
[2017-05-27] MEDS: atorvastatin 20mg tablet PO SCH (21:38)
[2017-05-27] MEDS: vitamin E 400 unit capsule PO SCH (21:38)
[2017-05-27] MEDS: ondansetron/PF 4mg/2ml inj IV PRN (22:54)
[2017-05-27] MEDS: azelastine Nasal Spray bottle NS SCH (23:30)
[2017-05-27] MEDS: HYDROcodone/acetaminophen 5mg/325mg tablet PO PRN (23:31)
[2017-05-28] VITALS (13 sets, daily range): BP systolic 70–134; BP diastolic 23–113
[2017-05-28] MEDS: milrinone (Primacor) 20mg/D5W 100 ML IV SCH ×3 (01:18→19:42)
[2017-05-28] MEDS: normal saline 1000ml 1,000 ML IV SCH (01:19)
[2017-05-28] MEDS: piperacillin/tazo 3.375gm/50ml 50 ML IV SCH ×4 (01:49→19:56)
[2017-05-28] MEDS ORDERED: normal saline 250ml IV soln 250 ML IV ONE ×3 (02:50→05:00)
[2017-05-28 07:13] LABS: BASOPHILS % (AUTO) 0.5 % (0-1); EOSINOPHILS # (AUTO) 0.2 X10'3 (0-0.9); EOSINOPHILS % (AUTO) 3.6 % (0-6); HEMATOCRIT 22.1 % (35.0-45.0); HEMOGLOBIN 7.4 g/dl (12.0-16.0); LYMPHOCYTES # (AUTO) 1.1 X10'3 (1.1-4.8); LYMPHOCYTES % (AUTO) 22.1 % (21-51); MEAN CORPUSCULAR HGB CONC 33.6 % (33.0-36.5); MEAN CORPUSCULAR VOLUME 92.3 FL (78-98); MEAN PLATELET VOLUME 9.7 FL (7.4-10.4); MONOCYTES # (AUTO) 0.7 X10'3 (0-0.9); MONOCYTES % (AUTO) 13.9 % (2-12); NEUTROPHILS # (AUTO) 2.9 X10'3 (1.8-7.7); NEUTROPHILS % (AUTO) 59.9 % (42-75); PLATELET COUNT 83 X10'3 (140-440); RED CELL DISTRIBUTION WIDTH 21.5 % (11.5-14.5); WHITE BLOOD COUNT 4.9 X10'3 (4.5-11.0)
[2017-05-28 07:36] LABS: ALANINE AMINOTRANSFERASE 61 U/L (12-78); ALBUMIN 2.1 G/DL (3.4-5.0); ALBUMIN/GLOBULIN RATIO 0.9 (1.1-1.5); ALKALINE PHOSPHATASE 73 IU/L (46-116); ANION GAP 8 (8-16); ASPARTATE AMINO TRANSFERASE 37 U/L (10-37); BILIRUBIN,TOTAL 0.8 MG/DL (0.1-1.0); BLOOD UREA NITROGEN 54 MG/DL (7-18); BUN/CREATININE RATIO 28.3 (6.6-38.0); CALCIUM 7.7 MG/DL (8.5-10.1); CHLORIDE 101 MMOL/L (99-107); CREATININE 1.91 MG/DL (0.40-0.90); GLUCOSE 257 MG/DL (70-104); PLATELET ESTIMATE DECREASED; POTASSIUM 4.2 MMOL/L (3.5-5.1); SODIUM 139 MMOL/L (135-145); TOTAL CARBON DIOXIDE 30.2 MMOL/L (24-32); TOTAL PROTEIN 4.5 G/DL (6.4-8.2); eGFR 26 ML/MIN
[2017-05-28 07:38] LABS: ANISOCYTOSIS 3+; ELLIPTOCYTES FEW; HYPOCHROMASIA 1+; POLYCHROMASIA 1+; SCHISTOCYTES 1+; STOMATOCYTES 1+; TEAR DROP CELLS FEW
[2017-05-28] MEDS: K and/or MAG REPLACEMENT MC SCH (08:00)
[2017-05-28] MEDS: metolazone 2.5mg tablet PO SCH ×2 (08:00→19:43)
[2017-05-28] MEDS ORDERED: lisinopril 20mg tablet PO SCH (08:00)
[2017-05-28] MEDS: calcium carbonate/vitamin D3 tablet PO SCH (08:19)
[2017-05-28] MEDS: aspirin 81mg tablet.DR PO SCH (08:19)
[2017-05-28] MEDS: ferrous sulfate 325mg tablet PO SCH (08:19)
[2017-05-28] MEDS: docusate sod 100mg capsule PO SCH ×2 (08:19→19:43)
[2017-05-28] MEDS: buPROPion SR 150mg tablet PO SCH (08:19)
[2017-05-28] MEDS: vitamin B comp w/Vit. C tab 1 TAB TABLET PO SCH (08:19)
[2017-05-28] MEDS: azelastine Nasal Spray bottle NS SCH ×2 (08:20→19:44)
[2017-05-28] MEDS: heparin, porcine 5000 units/ml vial SQ SCH ×2 (08:20→19:44)
[2017-05-28] MEDS: ondansetron/PF 4mg/2ml inj IV PRN ×2 (08:21→16:51)
[2017-05-28] MEDS: fluticasone nasal spray 16GM bottle NS SCH (08:21)
[2017-05-28] MEDS: nystatin 15 GM powder TP SCH ×3 (08:22→21:41)
[2017-05-28] MEDS: insulin Lispro (HumaLOG) vial - multi-dose SQ SCH ×3 (08:36→19:47)
[2017-05-28] MEDS ORDERED: furosemide 20 MG/2 ML vial IV ONE ×2 (11:50→15:15)
[2017-05-28] MEDS: lactobacillus rhamnosus 10,000 MMU CELLS/CAPSULE PO SCH (17:31)
[2017-05-28] MEDS: furosemide 40mg/4ml inj IV SCH (19:44)
[2017-05-28] MEDS: morphine 5 MG/ML injection IV PRN (19:44)
[2017-05-28] MEDS: psyllium seed 3.4 gm packet PO SCH (21:00)
[2017-05-28] MEDS: polyethylene glycol 3350 17gm powd pack PO SCH (21:00)
[2017-05-28] MEDS: mag hydrox/Alum hydrox/simeth 30ml oral suspension PO PRN (21:34)
[2017-05-28] MEDS: pregabalin 25mg capsule PO SCH (21:34)
[2017-05-28] MEDS: vitamin E 400 unit capsule PO SCH (21:34)
[2017-05-28] MEDS: pregabalin 75mg capsule PO SCH (21:34)
[2017-05-28] MEDS: atorvastatin 20mg tablet PO SCH (21:35)
[2017-05-28] MEDS: insulin glargine (Lantus) pen - multi-dose SQ SCH (21:41)
[2017-05-29] VITALS (16 sets, daily range): BP systolic 85–131; BP diastolic 32–83
[2017-05-29] MEDS: piperacillin/tazo 3.375gm/50ml 50 ML IV SCH ×4 (02:41→19:45)
[2017-05-29] MEDS: milrinone (Primacor) 20mg/D5W 100 ML IV SCH ×3 (06:49→23:25)
[2017-05-29] MEDS: ipratropium/albuterol 3ml nebule NEB PRN ×2 (07:36→20:28)
[2017-05-29] MEDS: lactobacillus rhamnosus 10,000 MMU CELLS/CAPSULE PO SCH ×2 (07:58→17:28)
[2017-05-29] MEDS: vitamin B comp w/Vit. C tab 1 TAB TABLET PO SCH (07:58)
[2017-05-29] MEDS: aspirin 81mg tablet.DR PO SCH (07:59)
[2017-05-29] MEDS: ondansetron/PF 4mg/2ml inj IV PRN ×3 (07:59→20:34)
[2017-05-29] MEDS: docusate sod 100mg capsule PO SCH ×2 (07:59→19:44)
[2017-05-29] MEDS: ferrous sulfate 325mg tablet PO SCH (07:59)
[2017-05-29] MEDS: metolazone 2.5mg tablet PO SCH ×2 (07:59→19:44)
[2017-05-29] MEDS: buPROPion SR 150mg tablet PO SCH (07:59)
[2017-05-29] MEDS: calcium carbonate/vitamin D3 tablet PO SCH (08:00)
[2017-05-29] MEDS: furosemide 40mg/4ml inj IV SCH ×4 (08:00→20:00)
[2017-05-29] MEDS: carVEDilol 12.5mg tablet PO SCH ×2 (08:00→19:44)
[2017-05-29] MEDS: K and/or MAG REPLACEMENT MC SCH (08:00)
[2017-05-29] MEDS: fluticasone nasal spray 16GM bottle NS SCH (08:02)
[2017-05-29] MEDS: azelastine Nasal Spray bottle NS SCH ×2 (08:02→19:46)
[2017-05-29] MEDS: morphine 5 MG/ML injection IV PRN (08:03)
[2017-05-29] MEDS: nystatin 15 GM powder TP SCH ×3 (08:47→20:11)
[2017-05-29] MEDS: insulin Lispro (HumaLOG) vial - multi-dose SQ SCH ×2 (08:52→13:45)
[2017-05-29 09:02] LABS: BASOPHILS % (AUTO) 0.1 % (0-1); EOSINOPHILS # (AUTO) 0.3 X10'3 (0-0.9); EOSINOPHILS % (AUTO) 4.1 % (0-6); HEMATOCRIT 29.9 % (35.0-45.0); LYMPHOCYTES # (AUTO) 0.8 X10'3 (1.1-4.8); LYMPHOCYTES % (AUTO) 12.3 % (21-51); MEAN CORPUSCULAR HEMOGLOBIN 29.9 PG (27.0-31.0); MEAN CORPUSCULAR HGB CONC 33.5 % (33.0-36.5); MEAN CORPUSCULAR VOLUME 89.1 FL (78-98); MEAN PLATELET VOLUME 8.8 FL (7.4-10.4); MONOCYTES % (AUTO) 15.3 % (2-12); NEUTROPHILS # (AUTO) 4.2 X10'3 (1.8-7.7); NEUTROPHILS % (AUTO) 68.2 % (42-75); PLATELET COUNT 95 X10'3 (140-440); RED BLOOD COUNT 3.35 X10'6 (4.20-5.60); RED CELL DISTRIBUTION WIDTH 22.2 % (11.5-14.5); WHITE BLOOD COUNT 6.2 X10'3 (4.5-11.0)
[2017-05-29 09:17] LABS: ALANINE AMINOTRANSFERASE 56 U/L (12-78); ALBUMIN 2.5 G/DL (3.4-5.0); ALBUMIN/GLOBULIN RATIO 0.9 (1.1-1.5); ALKALINE PHOSPHATASE 81 IU/L (46-116); ANION GAP 6 (8-16); ASPARTATE AMINO TRANSFERASE 37 U/L (10-37); BILIRUBIN,TOTAL 1.2 MG/DL (0.1-1.0); BLOOD UREA NITROGEN 56 MG/DL (7-18); BUN/CREATININE RATIO 23.9 (6.6-38.0); CALCIUM 8.2 MG/DL (8.5-10.1); CHLORIDE 99 MMOL/L (99-107); CREATININE 2.34 MG/DL (0.40-0.90); GLUCOSE 239 MG/DL (70-104); POTASSIUM 4.4 MMOL/L (3.5-5.1); SODIUM 137 MMOL/L (135-145); TOTAL CARBON DIOXIDE 31.6 MMOL/L (24-32); TOTAL PROTEIN 5.3 G/DL (6.4-8.2); eGFR 20 ML/MIN
[2017-05-29] MEDS: heparin, porcine 5000 units/ml vial SQ SCH ×2 (09:19→19:43)
[2017-05-29 09:21] LABS: ANISOCYTOSIS 3+; PLATELET ESTIMATE DECREASED; POLYCHROMASIA FEW; SCHISTOCYTES FEW
[2017-05-29] MEDS: NUT.TX.GLUC.INTOLER,LAC-FR,REG (BOOST GLUCOSE CONTROL) 237 ML PO SCH ×2 (13:00→18:00)
[2017-05-29] MEDS ORDERED: morphine 5 MG/ML injection IV PRN ×2 (13:15)
[2017-05-29] MEDS ORDERED: morphine 10 MG/5 ML UD oral solution PO PRN (13:25)
[2017-05-29] MEDS: morphine 10 MG/5 ML UD oral solution PO PRN ×2 (13:38→19:41)
[2017-05-29] MEDS ORDERED: furosemide 40mg/4ml inj IV ONE (14:10)
[2017-05-29] MEDS ORDERED: digoxin 250mcg/ml 2ml ampule IV ONE (14:15)
[2017-05-29] MEDS ORDERED: amiodarone 50MG/ML inj IV ONE (15:25)
[2017-05-29] MEDS ORDERED: amiodarone in dextrose, iso-osm 150mg/100ml bag IV ONE (15:35)
[2017-05-29] MEDS: mag hydrox/Alum hydrox/simeth 30ml oral suspension PO PRN (17:34)
[2017-05-29] MEDS: psyllium seed 3.4 gm packet PO SCH (20:11)
[2017-05-29] MEDS: polyethylene glycol 3350 17gm powd pack PO SCH (20:11)
[2017-05-29] MEDS: pregabalin 25mg capsule PO SCH (20:12)
[2017-05-29] MEDS: pregabalin 75mg capsule PO SCH (20:12)
[2017-05-29] MEDS: vitamin E 400 unit capsule PO SCH (20:12)
[2017-05-29] MEDS: amiodarone 200mg tablet PO SCH (20:13)
[2017-05-29] MEDS: atorvastatin 20mg tablet PO SCH (20:14)
[2017-05-29] MEDS: insulin glargine (Lantus) pen - multi-dose SQ SCH (20:21)
[2017-05-30] VITALS (13 sets, daily range): BP systolic 76–141; BP diastolic 32–70
[2017-05-30] MEDS: piperacillin/tazo 3.375gm/50ml 50 ML IV SCH ×4 (01:49→14:11)
[2017-05-30] MEDS: normal saline 1000ml 1,000 ML IV SCH (01:49)
[2017-05-30] MEDS ORDERED: normal saline 250ml IV soln 250 ML IV ONE (03:40)
[2017-05-30] MEDS ORDERED: albumin (human) 25% 100 ML IV solution IV ONE (03:55)
[2017-05-30] MEDS: ondansetron/PF 4mg/2ml inj IV PRN ×2 (04:44→11:22)
[2017-05-30] MEDS: acetaminophen 325mg tablet PO PRN (05:11)
[2017-05-30] MEDS: mag hydrox/Alum hydrox/simeth 30ml oral suspension PO PRN ×3 (05:23→19:17)
[2017-05-30 06:13] LABS: BASOPHILS % (AUTO) 0.7 % (0-1); EOSINOPHILS # (AUTO) 0.4 X10'3 (0-0.9); HEMOGLOBIN 9.7 g/dl (12.0-16.0); LYMPHOCYTES # (AUTO) 1.1 X10'3 (1.1-4.8); LYMPHOCYTES % (AUTO) 18.6 % (21-51); MEAN CORPUSCULAR HEMOGLOBIN 29.9 PG (27.0-31.0); MEAN CORPUSCULAR HGB CONC 33.5 % (33.0-36.5); MEAN CORPUSCULAR VOLUME 89.3 FL (78-98); MEAN PLATELET VOLUME 9.6 FL (7.4-10.4); MONOCYTES # (AUTO) 0.9 X10'3 (0-0.9); MONOCYTES % (AUTO) 15.2 % (2-12); NEUTROPHILS # (AUTO) 3.6 X10'3 (1.8-7.7); NEUTROPHILS % (AUTO) 59.5 % (42-75); PLATELET COUNT 95 X10'3 (140-440); RED BLOOD COUNT 3.25 X10'6 (4.20-5.60); RED CELL DISTRIBUTION WIDTH 21.3 % (11.5-14.5)
[2017-05-30 06:30] LABS: ALANINE AMINOTRANSFERASE 42 U/L (12-78); ALBUMIN 2.7 G/DL (3.4-5.0); ALBUMIN/GLOBULIN RATIO 1.1 (1.1-1.5); ALKALINE PHOSPHATASE 60 IU/L (46-116); ANION GAP 9 (8-16); ASPARTATE AMINO TRANSFERASE 30 U/L (10-37); BILIRUBIN,TOTAL 0.9 MG/DL (0.1-1.0); BLOOD UREA NITROGEN 60 MG/DL (7-18); BUN/CREATININE RATIO 21.1 (6.6-38.0); CALCIUM 8.2 MG/DL (8.5-10.1); CHLORIDE 97 MMOL/L (99-107); CREATININE 2.85 MG/DL (0.40-0.90); GLUCOSE 144 MG/DL (70-104); POTASSIUM 4.2 MMOL/L (3.5-5.1); SODIUM 137 MMOL/L (135-145); TOTAL CARBON DIOXIDE 31.5 MMOL/L (24-32); TOTAL PROTEIN 5.2 G/DL (6.4-8.2); eGFR 16 ML/MIN
[2017-05-30] MEDS ORDERED: pantoprazole 40mg Tablet.DR PO SCH (07:50)
[2017-05-30] MEDS: NUT.TX.GLUC.INTOLER,LAC-FR,REG (BOOST GLUCOSE CONTROL) 237 ML PO SCH ×3 (08:00→19:03)
[2017-05-30] MEDS ORDERED: lisinopril 20mg tablet PO SCH (08:00)
[2017-05-30] MEDS: amiodarone 200mg tablet PO SCH (09:03)
[2017-05-30] MEDS: lactobacillus rhamnosus 10,000 MMU CELLS/CAPSULE PO SCH (09:03)
[2017-05-30] MEDS: azelastine Nasal Spray bottle NS SCH (09:04)
[2017-05-30] MEDS: nystatin 15 GM powder TP SCH ×3 (09:04→21:00)
[2017-05-30] MEDS: fluticasone nasal spray 16GM bottle NS SCH (09:04)
[2017-05-30] MEDS: heparin, porcine 5000 units/ml vial SQ SCH (09:04)
[2017-05-30] MEDS: K and/or MAG REPLACEMENT MC SCH (09:06)
[2017-05-30] MEDS: carVEDilol 12.5mg tablet PO SCH (09:06)
[2017-05-30] MEDS: calcium carbonate/vitamin D3 tablet PO SCH (09:07)
[2017-05-30] MEDS: buPROPion SR 150mg tablet PO SCH (09:07)
[2017-05-30] MEDS: vitamin B comp w/Vit. C tab 1 TAB TABLET PO SCH (09:07)
[2017-05-30] MEDS: aspirin 81mg tablet.DR PO SCH (09:07)
[2017-05-30] MEDS: ferrous sulfate 325mg tablet PO SCH (09:07)
[2017-05-30] MEDS: docusate sod 100mg capsule PO SCH (09:07)
[2017-05-30] MEDS: metolazone 2.5mg tablet PO SCH (09:08)
[2017-05-30] MEDS: furosemide 40mg/4ml inj IV SCH ×2 (09:31)
[2017-05-30] MEDS ORDERED: morphine 5 MG/ML injection IV ONE (11:30)
[2017-05-30] MEDS ORDERED: morphine 2 MG/ML inj. syringe IV PRN (12:00)
[2017-05-30] MEDS: morphine 10 MG/5 ML UD oral solution PO PRN (14:54)
[2017-05-30] MEDS ORDERED: LORazepam 2 mg/ml vial IV PRN ×2 (15:00→18:40)
[2017-05-30] MEDS: morphine 10mg/0.5ml (conc. morphine) oral syringe PO PRN ×2 (17:19→19:18)
[2017-05-30] MEDS: pregabalin 75mg capsule PO SCH (21:00)
[2017-05-30] MEDS: pregabalin 25mg capsule PO SCH (21:00)
[2017-05-30] MEDS: morphine 5 MG/ML injection IV PRN (21:34)
[2017-05-31] MEDS: morphine 5 MG/ML injection IV PRN (00:02)
== END 2017-05-31 04:00 | disposition expired | DRG 291 ==
LOC: ER 21:02 → ED HOLD 05-22 01:49 → PCU 3S 05-22 02:38
PROVIDERS: ADMIT Internal Medicine; ATTEND Family Medicine
PROC: CB221ZZ Tomographic (Tomo) Nuclear Medicine Imaging of Lungs and Bronchi using Technetium 99m (Tc-99m) (ICD-10-PCS; 2017-05-21)
PROC: 0W9B3ZZ Drainage of Left Pleural Cavity, Percutaneous Approach (ICD-10-PCS; 2017-05-23)
PROC: 30233N1 Transfusion of Nonautologous Red Blood Cells into Peripheral Vein, Percutaneous Approach (ICD-10-PCS; principal; 2017-05-24)
PROC: 30233N1 Transfusion of Nonautologous Red Blood Cells into Peripheral Vein, Percutaneous Approach (ICD-10-PCS; 2017-05-28)
DX: I13.0 Hypertensive heart and chronic kidney disease with heart failure and stage 1 through stage 4 chronic kidney disease, or unspecified chronic kidney disease (principal); I50.33 Acute on chronic diastolic (congestive) heart failure; J90 Pleural effusion, not elsewhere classified; D68.9 Coagulation defect, unspecified; D69.6 Thrombocytopenia, unspecified; E11.22 Type 2 diabetes mellitus with diabetic chronic kidney disease; N17.9 Acute kidney failure, unspecified; I95.9 Hypotension, unspecified; N18.4 Chronic kidney disease, stage 4 (severe); Z68.41 Body mass index [BMI] 40.0-44.9, adult; E07.9 Disorder of thyroid, unspecified; G89.29 Other chronic pain; M54.9 Dorsalgia, unspecified; I48.0 Paroxysmal atrial fibrillation; G56.00 Carpal tunnel syndrome, unspecified upper limb; D63.8 Anemia in other chronic diseases classified elsewhere; E11.40 Type 2 diabetes mellitus with diabetic neuropathy, unspecified; E11.65 Type 2 diabetes mellitus with hyperglycemia; E78.00 Pure hypercholesterolemia, unspecified; E78.5 Hyperlipidemia, unspecified; F32.9 Major depressive disorder, single episode, unspecified; I34.0 Nonrheumatic mitral (valve) insufficiency; F41.9 Anxiety disorder, unspecified; I25.10 Atherosclerotic heart disease of native coronary artery without angina pectoris; Z66 Do not resuscitate; Z51.5 Encounter for palliative care; Z90.710 Acquired absence of both cervix and uterus; Z95.1 Presence of aortocoronary bypass graft; Z91.048 Other nonmedicinal substance allergy status; Z79.4 Long term (current) use of insulin; Z85.41 Personal history of malignant neoplasm of cervix uteri; Z87.891 Personal history of nicotine dependence; Z82.49 Family history of ischemic heart disease and other diseases of the circulatory system; Z82.41 Family history of sudden cardiac death; Z80.0 Family history of malignant neoplasm of digestive organs
CPT/HCPCS: 32555; 36415; 71045; 71250; 78582; 80053; 80061; 81001; 82948; 83036; 83735; 83880; 84439; 84443; 84484; 85025; 85379; 85610; 85730; 86885; 86900; 86901; 86920; 87077; 87088; 87186; 93005; 93308; 93970; 94640; 94760; 96365; 96375; 97110; 97162; 97530; 99291; A6209; A6212; A6213; A6258; A6449; A9270; A9539; A9540; C1758; J0282; J1160; J1250; J1644; J1815; J1940; J2060; J2260; J2270; J2405; J2543; J3490; J7030; P9016; P9047